=== PATIENT | male | born 1975 | race African-American/Black ===

== ENCOUNTER 2022-07-18 10:25 | Emergency (ER) | payer OTHER ==
[~2022-07-18] VITALS: Ht 175.3 cm; Wt 88.5 kg
[2022-07-18] MEDS ORDERED: METFORMIN HCL500 M3 PO (10:44)
[2022-07-18] MEDS ORDERED: PEPCID AC20 MG PO (10:45)
[2022-07-18] MEDS ORDERED: COZAAR50 MG PO (10:45)
[2022-07-18] MEDS ORDERED: LIPITOR40 M1 PO (10:45)
== END 2022-07-18 15:13 | disposition home or self-care (01) ==
LOC: ER 10:25
DX: R10.30 Lower abdominal pain, unspecified (principal); K59.00 Constipation, unspecified